=== PATIENT | female | born 1965 | race Caucasian/White ===

== ENCOUNTER 2023-06-22 11:22 | Outpatient (CLI) | payer OTHER, SELFPAY ==
--- OUTSIDE RECORDS SUMMARY | 2023-06-22 11:26 | XMS_ITS | Patient Health Record ---
Author Name Unknown Organization [facility] [place] Address [address] [place], [place] [id number] Care Team Providers Care Sole Rougher Name Role Phone JanRahel Primary Care Provider Mireille Vizcaino Unavailable [phone] ALLERGIES Allergen (clinical drug ingredient) Drug/Non Drug Allergy documented on EMR Reaction Allergy Type Onset Date Status Amidrine dizziness Drug Allergy Active procaine Procaine Unknown Drug Allergy Active trazodone Trazodone dizziness Drug Allergy Active zolpidem Zolpidem Unknown Drug Allergy Active RESULTS Component Value Reference Range Notes Vitamin B12 and Folate Reviewed date:05/13/2023 01:48:34 PM Interpretation:Normal Performing Lab: Notes/Report: Normal FOLATE, SERUM 11.8 VITAMIN B12 1,262 Vitamin B12 Folate (Folic Acid), Serum Vitamin B12 and Folate Reviewed date:02/22/2023 11:24:02 AM Interpretation:Low Vitamin B12 Performing Lab:[facility], [address] [place] [address], [phone] Tom Luna Notes/Report: VITAMIN B12 581 172-9384 pg/mL FOLATE, SERUM 6.4 Reference Range Low: <3.4 Borderline: 3.4-5.4 Normal: >5.4 Zinc, Plasma or Serum Reviewed date:12/15/2022 08:56:33 AM Interpretation:83 Performing Lab: Notes/Report: 83 ZINC 83 Zinc, Plasma or Serum T3, FREE Reviewed date:07/30/2022 08:59:11 PM Interpretation:3.35 Performing Lab: Notes/Report: 3.35 T3, FREE 3.35 T3, FREE Reviewed date:12/15/2022 08:57:02 AM Interpretation:3.9 Performing Lab: Notes/Report: 3.9 T3, FREE 3.9 T3, FREE Reviewed date:09/01/2022 03:08:47 PM Interpretation:4.5 Performing Lab: Notes/Report: 4.5 T3, FREE 4.5 T3, FREE Reviewed date:05/14/2023 02:52:42 PM Interpretation:3.97 Performing Lab: Notes/Report: 3.97 T3, FREE 3.97 T3, FREE Reviewed date:02/22/2023 11:21:57 AM Interpretation:3.9 Performing Lab:[facility], [address] [place], [phone] Tom Luna Notes/Report: T3, FREE 3.9 2.3-4.2 pg/mL MAGNESIUM Reviewed date:05/13/2023 01:48:12 PM Interpretation:2.0 Performing Lab: Notes/Report: 2.0 MAGNESIUM 2.0 SED RATE BY MODIFIED MARCOERG MARIELLE Reviewed date:05/25/2023 09:58:31 AM Interpretation:9 Performing Lab: Notes/Report: 9 SED RATE BY MODIFIED JAI 9 T4, FREE Reviewed date:02/22/2023 11:22:07 AM Interpretation:1.2 Performing Lab:[facility], [address] [place], [phone] Tom Luna Notes/Report: T4, FREE 1.2 0.8-1.8 ng/dL T4, FREE Reviewed date:12/15/2022 08:56:51 AM Interpretation:1.00 Performing Lab: Notes/Report: 1.00 T4, FREE 1.00 T4, FREE Reviewed date:05/13/2023 01:48:49 PM Interpretation:1.0 Performing Lab: Notes/Report: 1.0 T4, FREE 1.0 T4, FREE Reviewed date:09/01/2022 03:09:01 PM Interpretation:1.32 Performing Lab: Notes/Report: 1.32 T4, FREE 1.32 T4, FREE Reviewed date:07/30/2022 03:41:56 PM Interpretation:1.08 Performing Lab: Notes/Report: 1.08 T4, FREE 1.08 TSH, 3RD GENERATION Reviewed date:07/30/2022 03:44:18 PM Interpretation:0.01 Performing Lab: Notes/Report: 0.01 TSH, 3RD GENERATION 0.01 TSH TSH, 3RD GENERATION Reviewed date:09/01/2022 03:10:35 PM Interpretation:0.005 Performing Lab: Notes/Report: 0.005 TSH, 3RD GENERATION <0.005 TSH TSH, 3RD GENERATION Reviewed date:12/15/2022 08:58:17 AM Interpretation:0.005 Performing Lab: Notes/Report: 0.005 TSH, 3RD GENERATION <0.005 TSH TSH, 3RD GENERATION Reviewed date:05/20/2023 03:57:43 PM Interpretation:0.01 Performing Lab: Notes/Report: 0.01 TSH, 3RD GENERATION <0.01 TSH TSH, 3RD GENERATION Reviewed date:02/22/2023 11:23:39 AM Interpretation:0.01 Performing Lab:[facility], [address] [place] [address], [phone] Tom Luna Notes/Report: TSH <0.01 0.40-4.50 mIU/L T3 REVERSE, LC/MS/MS Reviewed date:07/30/2022 03:42:53 PM Interpretation:14.2 Performing Lab: Notes/Report: 14.2 T3 REVERSE, LC/MS/MS 14.2 T3 REVERSE, LC/MS/MS Reviewed date:05/20/2023 10:52:50 AM Interpretation:11.5 Performing Lab: Notes/Report: 11.5 T3 REVERSE, LC/MS/MS 11.5 T3 REVERSE, LC/MS/MS Reviewed date:12/22/2022 03:15:25 PM Interpretation:14.5 Performing Lab: Notes/Report: 14.5 T3 REVERSE, LC/MS/MS 14.5 T3 REVERSE, LC/MS/MS Reviewed date:09/03/2022 09:30:48 PM Interpretation:16.5 Performing Lab: Notes/Report: 16.5 T3 REVERSE, LC/MS/MS 16.5 Iodine, serum Reviewed date:12/15/2022 08:56:14 AM Interpretation:45 Performing Lab: Notes/Report: 45 IODINE, SERUM/PLASMA 45.4 Iodine, serum Reviewed date:02/22/2023 11:23:01 AM Interpretation:108 Performing Lab:[facility], [address], [place], [address] Tomasz Webb M.D.,PhD Notes/Report: IODINE, SERUM/PLASMA 108 52-109 mcg/L This test was developed and its analytical performance characteristics have been determined by [place] It has not been cleared or approved by the U.S. Food and Drug Administration. This assay has been validated pursuant to the CLIA regulations and is used for clinical purposes. VITAMIN B6, PLASMA Reviewed date:05/20/2023 04:00:52 PM Interpretation:20 Performing Lab: Notes/Report: 20 VITAMIN B6, PLASMA 20 REASON FOR REFERRAL No Information MEDICATIONS Medication SIG (Take, Route, Frequency, Duration) Notes Start Date End Date Status Liothyronine Sodium 5 MCG TAKE 2 TABLETS BY MOUTH TWICE DAILY ON AN EMPTY STOMACH for 30 Active Levothyroxine Sodium 88 MCG TAKE 1 TABLE T BY MOUTH DAILY IN THE MORNING ON AN EMPTY STOMACH for 30 Active Vitamin C 1000 MG 1 tablet Orally Once a day for 30 day(s) Active Tumeric Active Fish Oil 1000 MG 1 capsule Orally Onc e a day for 30 day(s) Active Lisinopril-hydroCHLOROthiazi de 20-12.5 MG 1 tablet Orally Once a day for 30 day(s) Active Atorvastatin Calcium 40 MG 1 tablet Oral ly Once a day for 30 day(s) Active Vitamin D-3 25 MCG (1000 UT) 1 capsule O rally Once a day for 30 day(s) Active Calcium 600 MG 1 tablet with meals Orally Twice a day for 30 day(s) Active SOCIAL HISTORY Tobacco Use: Social History Observation Description Date Details (start date - stop date) Never Smoker NA - NA Sex Assigned At : Social History Observation Description Sex Assigned At Unknown Smoking Question Answer Notes Status: Non-Smoker PROBLEMS Problem Type ICD Code Onset Dates Problem Status W/U Status Risk SNOMED Code Notes Problem Hyperlipidemia LDL goal <130 (E78.5) Active confirmed 12983592 Problem Eosinophilic esophagitis (K20.0) Active confirmed 284219690 Problem 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) Active confirmed 50208224 Problem Hypothyroidism, acquired (E03.9) Active confirmed Hypothyroid ism (80297564) Problem Stage 3a chronic kidney disease (N18.31) Active confirmed 258880540 VITAL SIGNS Height 63 in 05/10/2023 Encounters Encounter Location Date Provider Diagnosis [facility] [address] [facility], [place] [id number] 07/21/2022 Rahelvielka Montoya Hypothyroidism, acquired E03.9 [facility] [address] [facility], [place] [id number] 07/26/2022 [facility] [address] [facility] [id number] 07/27/2022 [facility] [address] [facility] [id number] 07/28/2022 [facility] [address] [facility] [id number] 07/30/2022 [facility] [address] [facility] [id number] 08/25/2022 Rahelvielka Montoya Hypothyroidism, acquired E03.9 [facility] [address] [facility], [place] [id number] 09/01/2022 [facility] [address] [facility] [id number] 09/01/2022 [facility] [address] [facility], [place] [id number] 09/20/2022 [facility] [address] [facility] [id number] 09/20/2022 [facility] [address] [facility] [id number] 10/03/2022 [facility] [address] [facility] [id number] 10/10/2022 [facility] [address] [facility], [place] [id number] 2022 Rahel Jan Hypothyroidism, acquired E03.9 [facility] [address] [facility], [place] [id number] 12/15/2022 [facility] [address] [facility] [id number] 12/15/2022 [facility] [address] [facility] [id number] 12/15/2022 [facility] [address] [facility] [id number] 12/15/2022 [facility] [address] [facility] [id number] 12/22/2022 [facility] [address] [facility] [id number] 02/18/2023 Rahelvielka Montoya Hypothyroidism, acquired E03.9 [facility] [address] [facility] [id number] 02/19/2023 [facility] [address] [facility] [id number] 02/22/2023 [facility] [address] [facility] [id number] 02/25/2023 [facility] [address] [facility], [place] [id number] 03/04/2023 [facility] [address] [facility] [id number] 05/05/2023 [facility] [address] [facility] [id number] 05/06/2023 [facility] [address] [facility], [place] [id number] 05/10/2023 Rahel Montoya Hypothyroidism, acquired E03.9 ; Low vitamin B12 level E53.8 and Low magnesium level R79.0 [facility] [address] [facility] [id number] 05/11/2023 [facility] [address] [facility] [id number] 05/12/2023 Rahel Montoya Eosinophilic esophagitis K20.0 [facility] [address] [facility], [place] [id number] 05/13/2023 [facility] [address] [facility] [id number] 05/19/2023 [facility] [address] [facility] [id number] 05/20/2023 [facility] [address] [facility] [id number] 05/20/2023 [facility] [address] [place], [place] [id number] 05/20/2023 [facility] [address] [place], [place] [id number] 05/21/2023 [facility] [address] [place], [place] [id number] 06/01/2023 [facility] [address] [place], [place] [id number] 06/08/2023 Rahel Cuello [facility], [facility] [address] [place], [place] [id number] 06/21/2023 Mireille Vizcaino Dietary counseling a nd surveillance Z71.3 ; Tylor's thyroiditis E06.3 ; Eosinophilic esophagitis K20.0 ; Stage 3a chronic kidney disease N18.31 and Hyperlipidemia LDL goal <130 E78.5 ASSESSMENTS Encounter Date Diagnosis Assessment Notes Treatment Notes Treatment Clinical Notes 02/18/2023 Hypothyroidism, acquired (ICD-10 - E03.9) 2022 Hypothyroidism, acquired (ICD-10 - E03.9) 07/21/2022 Hypothyroidism, acquired (ICD-10 - E03.9) 08/25/2022 Hypothyroidism, acquired (ICD-10 - E03.9) 06/21/2023 Dietary counseling and surveillance (ICD-10 - Z71.3) Action Plan/Dietary & Behavior Changes: Health goals 06.20.2023 Intermittent fasting. Skip breakfast during the work week. Move your vitamin to midmorning or with lunch. First meal 10-11am Soup, stew, crockpot meals Protein: 3-4 ounces meat or fish Carb: 1 cup cooked veggies and .5 cup starch Fat: 15 grams fat Snacks: 3pm (when having cravings, eat snack first before deciding) Carb: small apple or non dairy milk. Fat: sun butter or pumpkin seed butter Protein: Chomps or 20 grams of collagen or Epic bites or hard boiled egg RXBar BulletProof Bar: https://www.SwapDrive/Bulletproof -Collagen-Protein -Onnnmh-Mbst-Jteg tbread/dp/W99URQ5 P9X/ref=sr_1_4?ke ywords=Bulletproo f+bar&s=grocery&s r=1-4 Flackers: https://www.SwapDrive/dp/X60P7OXQ B8?ref=nb_sb_ss_w _as-reorder_k0_1_ 4&amp=&amp= 5-5:30pm Protein: 3-4 ounces meat or fish Carb: 1 cup or more cooked veggies and .5 cup starch Fat: 15 grams fat See the Elimination Gut rest after dinner. Mindful eating: Low stress eating. Try 5 slow belly breaths before starting your meal. or 5.5 seconds breathing: Paced Breathin.5 breaths per minute - YouTube Slow eating Pay attention to your food while you eat it. Chew food 10 to 30 times before swallowing. No liquids 20 minutes before and after meals. Can add in .25tsp of apple cider vinegar with 4 ounces of water to help. How to Take the Baking Soda Stomach Acid Test: 1. First thing in the morning (before eating or drinking), mix 1/4 teaspoon of baking soda in 4 ounces of cold water. 2. Drink the baking soda solution. 3. Set a timer and see how long it takes you to burp. If you have not burped within five minutes, stop timing. In theory, if your stomach is producing adequate amounts of stomach acid, you will likely burp within two to three minutes. Any burping after three minutes may indicate a low acid level. Try to do for three days in a row. 100 percent gluten and dairy free for 2 months. Dairy free: Cheese: https://Caringo/produc t_category/dairy- free-cheese/ Cocojune: https://www.[employer] ManagementoOpenClovis.co/ Cocoyo: https://[employer]/collect ions/coconut-yogu rt Coconut Milk: https://www.SwapDrive/Faroese-Kitche z-Pyqnlst-Yqmzxtp ened-Coconut/dp/B 000QSTJYO/ref=sr_ 1_3_f3_0o_fs_sspa ?keywords=canned+ coconut+milk&sr=8 -3-spons&sp_csd=d 6nlM9I8BkWfEL3dsW 9hdGY&psc=1 Or Coconut Milk: https://www.SwapDrive/[place]-Fore yz-Cgxgypr-Xpvqix c-Packaging/dp/B0 52TVJ8MH/ref=sxin _16_pa_sp_search_ thematic_sspa?con tent-id=amzn1.sym .2m930l58-4290-3g [id number] f81%7Iagwt0.sym.9 [id number] -[id number] 1&cv_ct_cx=canned +coconut+milk&villela words=canned+eddie nut+milk&pd_rd_i= D780HGI0TF&sbo=RZ vfv%2F%2FHxDF%2BO 5021pAnSA%3D%3D&s r=5-1-2r07t760-5c 20-5c2h-tn515s1s-hy63-9357 5vgn3388-ueyjt&sp _csd=n6yaG2Q5HsMm IE3ihF2pBFYhJ9drw UbiaZD1tKI&psc=1 Collagen peptides: https://www.SwapDrive/Vital-Prote qmo-Xzmnoivc-Lshl swtb-Odtvlnh-Brls ed/dp/P01Q6BEY4I/ ref=sr_1_7?keywor ds=vital+collagen &sr=8-7 20 grams per day Flax milk: https://[employer]/ Pumpkin Seed: https://www.SwapDrive/88-Acres-Or drobk-Xqb-Zfse-Da iry-Free/dp/B07MV RH6C8/ref=sr_1_6? keywords=pumpkin+ seed+butter+no+an gar&rdc=1&s=bridget ry&sr=1-6 CoQ10 200 mg for statin and low energy. Take earlier in the day. https://www.SwapDrive/NOW-CoQ10-2 69-Glq-Klozmtli/d p/Z944Q0TAO5/ref= sr_1_2?keywords=n ow+cq10+400&rdc=1 &sr=8-2 GlutaShield: https://Myxer/products/glut tijgvlk-jyjycoc-7 07gm?_pos=2&_sid= 36b9n2881&_ss=r Take once per day around bedtime. Lab: (connect with [facility] about faxing over the lab order) Fasting Insulin (12 hours minimum) A1C Beef protein: https://Myxer/products/pale z-vvoiszo-ffehdtm ?_pos=1&_psq=beef &_ss=e&_v=1.0 Next step: if needed https://www.Forseva .com/tests/gi-map 06/21/2023 Tylor's thyroiditis (ICD-10 - E06.3) 05/12/2023 Eosinophilic esophagitis (ICD-10 - K20.0) 05/10/2023 Hypothyroidism, acquired (ICD-10 - E03.9) 05/10/2023 Low vitamin B12 leve l (ICD-10 - E53.8) 05/10/2023 Low magnesium level (ICD-10 - R79.0) 06/21/2023 Eosinophilic esophagitis (ICD-10 - K20.0) 06/21/2023 Stage 3a chronic kidney disease (ICD-10 - N18.31) 06/21/2023 Hyperlipidemia LDL goal <130 (ICD-10 - E78.5) PLAN OF TREATMENT Pending Test Test Name Order Date Selenium, Plasma 05/12/2022 Selenium, Plasma 03/31/2022 IgG food sensitivity-Biotek 12/05/2021 Future Test Test Name Order Date HGB A1C 06/21/2023 INSULIN 06/21/2023 Next Appt Details Provider Name:Mireille Vizcaino, 1 10/10/2022 02:30:00 PM, [address] [place], [place], [id number], Insurance Providers Payer Name Payer Address Payer Phone Subscriber Number Group Number Insured Name Patient Relationship to Insured Coverage Start Date Coverage End Date [employer] [address] [address] [place] [address] [id number] Krishna Samayoa Self - patient is the insured MEDICAL (GENERAL) HISTORY Medical History History ICD Code Eosinophilic Esophagitis Tylor's Hypothyroidism Hyperlipidemia Knee Arthritis Factor V Leiden Frozen Shoulder Kidney Stones Surgical History Surgery Date(Month/Year) right knee replacement sinus surgery tonsilectomy & adnoidecomy Kidney Stone Removal 10/2022
== END 2023-06-22 11:23 | disposition home or self-care (01) ==
LOC: INJ CL 11:24
PROVIDERS: PCP Physician Assistant; Visit Provider Family Medicine
DX: M17.12 Unilateral primary osteoarthritis, left knee (principal); M25.562 Pain in left knee
CPT/HCPCS: 64454

== ENCOUNTER 2023-07-13 13:13 | Outpatient (CLI) | payer OTHER, SELFPAY ==
--- OUTSIDE RECORDS SUMMARY | 2023-07-13 13:15 | XMS_ITS | Patient Health Record ---
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 [employer] Name Role Phone Jan, Rahel Primary Care Provider [phone] Mireille Vizcaino Unavailable [phone] ALLERGIES Allergen (clinical drug ingredient) Drug/Non Drug Allergy documented on EMR Reaction Allergy Type Onset Date Status Amidrine dizziness Drug Allergy Active procaine Procaine Unknown Drug Allergy Active trazodone Trazodone dizziness Drug Allergy Active zolpidem Zolpidem Unknown Drug Allergy Active RESULTS Component Value Reference Range Notes TSH, 3RD GENERATION Reviewed date:07/30/2022 03:44:18 PM Interpretation:0.01 Performing Lab: Notes/Report: 0.01 TSH, 3RD GENERATION 0.01 TSH T4, FREE Reviewed date:07/30/2022 03:41:56 PM Interpretation:1.08 Performing Lab: Notes/Report: 1.08 T4, FREE 1.08 T3 REVERSE, LC/MS/MS Reviewed date:07/30/2022 03:42:53 PM Interpretation:14.2 Performing Lab: Notes/Report: 14.2 T3 REVERSE, LC/MS/MS 14.2 T3, FREE Reviewed date:07/30/2022 08:59:11 PM Interpretation:3.35 Performing Lab: Notes/Report: 3.35 T3, FREE 3.35 TSH, 3RD GENERATION Reviewed date:09/01/2022 03:10:35 PM Interpretation:0.005 Performing Lab: Notes/Report: 0.005 TSH, 3RD GENERATION <0.005 TSH T4, FREE Reviewed date:09/01/2022 03:09:01 PM Interpretation:1.32 Performing Lab: Notes/Report: 1.32 T4, FREE 1.32 T3, FREE Reviewed date:09/01/2022 03:08:47 PM Interpretation:4.5 Performing Lab: Notes/Report: 4.5 T3, FREE 4.5 T3 REVERSE, LC/MS/MS Reviewed date:09/03/2022 09:30:48 PM Interpretation:16.5 Performing Lab: Notes/Report: 16.5 T3 REVERSE, LC/MS/MS 16.5 TSH, 3RD GENERATION Reviewed date:12/15/2022 08:58:17 AM Interpretation:0.005 Performing Lab: Notes/Report: 0.005 TSH, 3RD GENERATION <0.005 TSH T4, FREE Reviewed date:12/15/2022 08:56:51 AM Interpretation:1.00 Performing Lab: Notes/Report: 1.00 T4, FREE 1.00 T3, FREE Reviewed date:12/15/2022 08:57:02 AM Interpretation:3.9 Performing Lab: Notes/Report: 3.9 T3, FREE 3.9 T3 REVERSE, LC/MS/MS Reviewed date:12/22/2022 03:15:25 PM Interpretation:14.5 Performing Lab: Notes/Report: 14.5 T3 REVERSE, LC/MS/MS 14.5 Iodine, serum Reviewed date:12/15/2022 08:56:14 AM Interpretation:45 Performing Lab: Notes/Report: 45 IODINE, SERUM/PLASMA 45.4 Zinc, Plasma or Serum Reviewed date:12/15/2022 08:56:33 AM Interpretation:83 Performing Lab: Notes/Report: 83 ZINC 83 Zinc, Plasma or Serum Vitamin B12 and Folate Reviewed date:02/22/2023 11:24:02 AM Interpretation:Low Vitamin B12 Performing Lab:[facility], [address] [place], [address] Tom Luna Notes/Report: VITAMIN B12 344 665-3258 pg/mL FOLATE, SERUM 6.4 Reference Range Low: <3.4 Borderline: 3.4-5.4 Normal: >5.4 T3, FREE Reviewed date:02/22/2023 11:21:57 AM Interpretation:3.9 Performing Lab:[facility], [address], [address] Tom Luna Notes/Report: T3, FREE 3.9 2.3-4.2 pg/mL T4, FREE Reviewed date:02/22/2023 11:22:07 AM Interpretation:1.2 Performing Lab:, [facility], [address] [place], [address] Tom Luna Notes/Report: T4, FREE 1.2 0.8-1.8 ng/dL TSH, 3RD GENERATION Reviewed date:02/22/2023 11:23:39 AM Interpretation:0.01 Performing Lab:, [facility], [address] [place], [address] Tom Luna Notes/Report: TSH <0.01 0.40-4.50 mIU/L Iodine, serum Reviewed date:02/22/2023 11:23:01 AM Interpretation:108 Performing Lab:[facility] [employer], [address], [place], [address] Tomasz Webb M.D.,PhD Notes/Report: IODINE, SERUM/PLASMA 108 52-109 mcg/L This test was developed and its analytical performance characteristics have been determined by [employer] [place], [place]. It has not been cleared or approved by the U.S. Food and Drug Administration. This assay has been validated pursuant to the CLIA regulations and is used for clinical purposes. TSH, 3RD GENERATION Reviewed date:05/20/2023 03:57:43 PM Interpretation:0.01 Performing Lab: Notes/Report: 0.01 TSH, 3RD GENERATION <0.01 TSH T4, FREE Reviewed date:05/13/2023 01:48:49 PM Interpretation:1.0 Performing Lab: Notes/Report: 1.0 T4, FREE 1.0 T3 REVERSE, LC/MS/MS Reviewed date:05/20/2023 10:52:50 AM Interpretation:11.5 Performing Lab: Notes/Report: 11.5 T3 REVERSE, LC/MS/MS 11.5 T3, FREE Reviewed date:05/14/2023 02:52:42 PM Interpretation:3.97 Performing Lab: Notes/Report: 3.97 T3, FREE 3.97 Vitamin B12 and Folate Reviewed date:05/13/2023 01:48:34 PM Interpretation:Normal Performing Lab: Notes/Report: Normal FOLATE, SERUM 11.8 VITAMIN B12 1,262 Vitamin B12 Folate (Folic Acid), Serum VITAMIN B6, PLASMA Reviewed date:05/20/2023 04:00:52 PM Interpretation:20 Performing Lab: Notes/Report: 20 VITAMIN B6, PLASMA 20 MAGNESIUM Reviewed date:05/13/2023 01:48:12 PM Interpretation:2.0 Performing Lab: Notes/Report: 2.0 MAGNESIUM 2.0 SED RATE BY MODIFIED CLAUDIA PALOMARES Reviewed date:05/25/2023 09:58:31 AM Interpretation:9 Performing Lab: Notes/Report: 9 SED RATE BY MAITE Rivera REASON FOR REFERRAL No Information MEDICATIONS Medication [...] Hyperlipidemia LDL goal <130 (E78.5) Active confirmed 74578419 Problem Eosinophilic esophagitis (K20.0) Active confirmed 288058172 Problem 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) Active confirmed 72877434 Problem Hypothyroidism, acquired (E03.9) Active confirmed Hypothyroid ism (45425534) Problem Stage 3a chronic kidney disease (N18.31) Active confirmed 141617935 VITAL SIGNS Heart Rate 82 /min 02/18/2023 Temperature 98.8 degrees Fahrenheit 02/18/2023 Respiratory Rate 18 /min 02/18/2023 Blood pressure diastolic 82 mm Hg 02/18/2023 Height 63 in 05/10/2023 Blood pressure systolic 122 mm Hg 02/18/2023 Weight 234.8 lbs 02/18/2023 BMI 41.59 kg/m2 02/18/2023 Encounters Encounter Location Date Provider Diagnosis [facility] [address] [place], [place] [id number] 07/21/2022 Rahel Montoya Hypothyroidism, acquired E03.9 [facility] [address] [place], [place] [id number] 07/26/2022 [facility] [address] [place], [place] [id number] 07/27/2022 [facility] [address] [place], [place] [id number] 07/28/2022 [facility] [address] [place], [place] [id number] 07/30/2022 [facility] [address] [place], [place] [id number] 08/25/2022 Rahel Montoya Hypothyroidism, acquired E03.9 [facility] [address] [place], [place] [id number] 09/01/2022 [facility] [address] [place], [place] [id number] 09/01/2022 [facility] [address] [place], [place] [id number] 09/20/2022 [facility] [address] [place], [place] [id number] 09/20/2022 [facility] [address] [facility] [place] [id number] 10/03/2022 [facility] [address] [place], [place] [id number] 10/10/2022 [facility] [address] [place], [place] [id number] 2022 Rahel Montoya Hypothyroidism, acquired E03.9 [facility] [address] [facility], [place] [id number] 12/15/2022 [facility] [address] [facility], [place] [id number] 12/15/2022 [facility] [address] [facility], [place] [id number] 12/15/2022 [facility] [address] [facility] [id number] 12/15/2022 [facility] [address] [facility] [id number] 12/22/2022 [facility] [address] [facility], [place] [id number] 02/18/2023 Rahel Montoya Hypothyroidism, acquired E03.9 [facility] [address] [facility], [place] [id number] 02/19/2023 [facility] [address] [facility], [place] [id number] 02/22/2023 [facility] [address] [facility], [place] [id number] 02/25/2023 [facility] [address] [place], [place] [id number] 03/04/2023 [facility] [address] [facility] [id number] 05/05/2023 [facility] [address] [place], [place] [id number] 05/06/2023 [facility] [address] [facility], [place] [id number] 05/10/2023 Rahel Montoya Hypothyroidism, acquired E03.9 ; Low vitamin B12 level E53.8 and Low magnesium level R79.0 [facility] [address] [facility], [place] [id number] 05/11/2023 [facility] [address] [facility], [place] [id number] 05/12/2023 Rahel Montoya Eosinophilic esophagitis K20.0 [facility] [address] [facility], [place] [id number] 05/13/2023 [facility] [address] [facility], [place] [id number] 05/19/2023 [facility] [address] [facility] [id number] 05/20/2023 [facility] [address] [facility], [place] [id number] 05/20/2023 [facility] [address] [facility] [id number] 05/20/2023 [facility] [address] [facility] [id number] 05/21/2023 [facility] [address] [facility] [id number] 06/01/2023 [facility] [address] [facility], [place] [id number] 06/08/2023 [facility] [address] [facility], [place] [id number] 06/21/2023 Mireille Jinl Dietary counseling a nd surveillance Z71.3 ; Tylor's thyroiditis E06.3 ; Eosinophilic esophagitis K20.0 ; Stage 3a chronic kidney disease N18.31 and Hyperlipidemia LDL goal <130 E78.5 [facility] [address] [facility], [place] [id number] 06/24/2023 [facility] [address] [facility], [place] [id number] 06/28/2023 Rahel Montoya ASSESSMENTS Encounter Date Diagnosis Assessment Notes Treatment Notes Treatment Clinical Notes 07/21/2022 Hypothyroidism, acquired (ICD-10 - E03.9) 08/25/2022 Hypothyroidism, acquired (ICD-10 - E03.9) 2022 Hypothyroidism, acquired (ICD-10 - E03.9) 02/18/2023 Hypothyroidism, acquired (ICD-10 - E03.9) 05/10/2023 Hypothyroidism, acquired (ICD-10 - E03.9) 05/10/2023 Low vitamin B12 leve l (ICD-10 - E53.8) 05/12/2023 Eosinophilic esophagitis (ICD-10 - K20.0) 06/21/2023 Dietary counseling and surveillance (ICD-10 - [...] Epic bites or hard boiled egg RXBar BulletProHeadCase Humanufacturing Bar: https://[employer] Technologies -Collagen-Protein -Cpbizn-Aben-Vbdq tbread/dp/U88UBP0 P9X/ref=sr_1_4?ke ywords=Code42 f+bar&s=grocery&s r=1-4 Flackers: https://[employer]/dp/K80G5JIJ B8?ref=nb_sb_ss_w _as-reorder_k0_1_ 4&amp=&amp= 5-5:30pm Protein: 3-4 ounces [...] free for 2 months. Dairy free: Cheese: https://[employer]/produc t_category/dairy- free-cheese/ Cocojune: https://www.[employer].StormPins/ Cocoyo: https://Pinch[employer]/collect ions/coconut-yogu rt Coconut Milk: https://www.[employer]/StackSafe j-Cwraxcg-Vkmuniv ened-Coconut/dp/B 000QSTJYO/ref=sr_ 1_3_f3_0o_fs_sspa ?keywords=canned+ coconut+milk&sr=8 -3-spons&sp_csd=d 1luW2J8RrGmNE7rwK 9hdGY&psc=1 Or Coconut Milk: https://[employer]/[place]-Fore xi-Mtomptv-Larzov c-Packaging/dp/B0 48SSN0HQ/ref=sxin _16_pa_sp_search_ thematic_sspa?con tent-id=amzn1.sym .[id number] o2-4473-92i420a77 f81%4Ppium2.sym.9 [id number] -[id number] 1&cv_ct_cx=canned +coconut+milk&villela words=canned+eddie nut+milk&pd_rd_i= P821QEZ8DT&sbo=RZ vfv%2F%2FHxDF%2BO 5021pAnSA%3D%3D&s r=0-3-6d34y429-5c 83-5k0e-hq930m5v-sx01-2526 3avr4828-ilqgp&sp _csd=w3cyQ9O9StRz SK7qfU6gOTOjI9oga TqqpXP5oNW&psc=1 Collagen peptides: https://www.[employer]/Vital-Prote wbj-Vvfibzae-Wdmp ofue-Jipfrgg-Xorz ed/dp/I99A0AAW9Y/ ref=sr_1_7?keywor ds=vital+collagen &sr=8-7 20 grams per day Flax milk: https://[employer]/ Pumpkin Seed: https://www.[employer]/88-Acres-Or nyacq-Kee-Qrms-Da iry-Free/dp/B07MV RH6C8/ref=sr_1_6? keywords=pumpkin+ seed+butter+no+an gar&rdc=1&s=bridget ry&sr=1-6 CoQ10 200 mg for statin and low energy. Take earlier in the day. https://[employer]/NOW-CoQ10-2 98-Tfe-Jnyquans/d p/P413Q8HJP8/ref= sr_1_2?keywords=n ow+cq10+400&rdc=1 &sr=8-2 GlutaShield: https://[employer]. [employer]/products/glut cymxbwt-qcujkkz-5 07gm?_pos=2&_sid= 56p5i0244&_ss=r Take once per day around bedtime. Lab: (connect with [facility] about percy over the lab order) Fasting Insulin (12 hours minimum) A1C Beef protein: https://[employer]. [employer]/products/pale l-bcncylr-kmxqgrs ?_pos=1&_psq=beef &_ss=e&_v=1.0 Next step: if needed https://www.diagn osticsolutionslab .com/tests/gi-map 06/21/2023 Tylor's thyroiditis (ICD-10 - E06.3) 06/21/2023 Eosinophilic esophagitis (ICD-10 - K20.0) 05/10/2023 Low magnesium level (ICD-10 - R79.0) 06/21/2023 Stage 3a chronic kidney disease (ICD-10 - N18.31) 06/21/2023 Hyperlipidemia LDL goal <130 (ICD-10 - E78.5) PLAN OF TREATMENT Pending Test Test Name Order Date Selenium, Plasma 03/31/2022 Selenium, Plasma 05/12/2022 IgG food sensitivity-Biotek 12/05/2021 Future Test Test Name Order Date HGB A1C 06/21/2023 INSULIN 06/21/2023 Next Appt Details Provider Name:Mireille Vizcaino, 1 10/10/2022 02:30:00 PM, [address] [place], [place], [id number], Insurance Providers Payer Name Payer Address Payer Phone Subscriber Number Group Number Insured Name Patient Relationship to Insured Coverage Start Date Coverage End Date [employer] - [employer] [address] [address] [place] [phone] [id number] Krishna Samayoa Self - patient is the insured MEDICAL (GENERAL) HISTORY Medical History History ICD Code Eosinophilic Esophagitis Tylor's Hypothyroidism Hyperlipidemia Knee Arthritis Factor V Leiden Frozen Shoulder Kidney Stones Surgical History Surgery Date(Month/Year) right knee replacement sinus surgery tonsilectomy & adnoidecomy Kidney Stone Removal 10/2022
== END 2023-07-13 13:14 | disposition home or self-care (01) ==
LOC: INJ CL 13:14
PROVIDERS: PCP Physician Assistant; Visit Provider Family Medicine
DX: M17.12 Unilateral primary osteoarthritis, left knee (principal); M25.562 Pain in left knee; G89.29 Other chronic pain
CPT/HCPCS: 64624; J2250; J3010